=== PATIENT | female | born 1935 | race Caucasian/White ===

== ENCOUNTER → 2017-02-10 | Outpatient (CLI) | payer MEDICARE | LOC: WI 09:40 | PROVIDERS: ATTEND Internal Medicine | DX: M81.0 Age-related osteoporosis without current pathological fracture (principal) | CPT/HCPCS: 77080 ==

== ENCOUNTER 2017-11-05 13:42 | Emergency (ER) | payer MEDICARE ==
--- NOTE | 2017-11-05 14:01 | RADIOLOGY REPORT (SQ) ---
EXAM DESCRIPTION: CT HEAD WITHOUT COMPLETED DATE/TIME: 11/05/2017 1:51 pm REASON FOR STUDY: bed 11 stroke alert COMPARISON: 12/12/2014. TECHNIQUE: Axial images acquired through the brain without intravenous contrast. Images reviewed wi th bone, brain and subdural windows. Images stored on PACS. All CT scanners at this facility use dose modulation, iterative reconstruction, and/or weight based d osing when appropriate to reduce radiation dose to as low as reasonably achievable (ALARA). [facility]: Dose Right [facility]: CareDose [facility]: Dose Right [facility]: Teradose 4D [facility]: NormOxys RADIATION DOSE: mGy. LIMITATIONS: None. FINDINGS: VENTRICLES: Prominent. CEREBRUM: No masses. No hemorrhage. No midline shift. Areas of low density in the white matter mos t likely due to chronic micro-vascular ischemic change. No evidence for acute infarction. CEREBELLUM: No masses. No hemorrhage. No alteration of density. No evidence for acute infarction. EXTRAAXIAL SPACES: Mild age-related involutional change. No fluid collections. No masses. ORBITS AND GLOBE: No intra- or extraconal masses. Normal contour of globe without masses. CALVARIUM: No fracture. Previous right craniotomy. PARANASAL SINUSES: No fluid or mucosal thickening. SOFT TISSUES: No mass or hematoma. OTHER: No other significant finding. IMPRESSION: STABLE APPEARANCE. MILD CHRONIC CHANGES OF ATROPHY AND MICROVASCULAR ISCHEMIA. NO ACUT E PROCESS. EVIDENCE OF ACUTE STROKE: NO. COMMENT: Pertinent positive or negative findings of the imaging study reported as a CRITICAL EXAM t o ER STAFF at13:55 on 11/05/2017. Category of Critical Exam: Stroke protocol. TECHNICAL DOCUMENTATION: JOB ID: [id number] Quality ID # [id number]: Final reports with documentation of one or more dose reduction techniques (e.g., Au tomated exposure control, adjustment of the mA and/or kV according to patient size, use of iterative reconstruction technique) 2010 [employer]- All Rights Reserved
[2017-11-05 14:05] LABS: ABSOLUTE BASOPHILS # (AUTO) 0.1 10^3/uL (0.0-0.2); ABSOLUTE EOSINOPHILS # (AUTO) 0.2 10^3/uL (0.0-0.6); ABSOLUTE LYMPHOCYTES (AUTO) 2.6 10^3/uL (0.5-4.7); ABSOLUTE MONOCYTES (AUTO) 0.7 10^3/uL (0.1-1.4); ABSOLUTE NEUT (AUTO) 4.3 10^3/uL (1.7-8.2); BASOPHILS % (AUTO) 0.7 % (0-2); EOSINOPHILS % (AUTO) 2.5 % (0-6); HEMATOCRIT 42.4 % (36.0-47.0); HEMOGLOBIN 14.6 g/dL (12.0-15.5); HGB HCT DIFFERENCE 1.4; LYMPHOCYTES % (AUTO) 32.7 % (13-45); MEAN CORPUSCULAR HEMOGLOBIN 32.7 pg (27.0-33.4); MEAN CORPUSCULAR HGB CONC 34.5 g/dL (32.0-36.0); MEAN CORPUSCULAR VOLUME 95 fl (80-97); MONOCYTES % (AUTO) 8.9 % (3-13); RED BLOOD COUNT 4.47 10^6/uL (3.72-5.28); SEGMENTED NEUTROPHILS % (AUTO) 55.2 % (42-78); WHITE BLOOD COUNT 7.8 10^3/uL (4.0-10.5)
[2017-11-05 14:09] LABS: PROTHROMBIN TIME 12.9 SEC (11.4-15.4)
[2017-11-05 14:10] LABS: PARTIAL THROMBOPLASTIN TIME 32.3 SEC (23.5-35.8)
[2017-11-05] MEDS ORDERED: ALTEPLASE INJ 100 MG VIAL IV ONE (14:28)
--- NOTE | 2017-11-05 14:32 | RADIOLOGY REPORT (SQ) ---
EXAM DESCRIPTION: CHEST SINGLE VIEW COMPLETED DATE/TIME: 11/05/2017 1:53 pm REASON FOR STUDY: bed 11 stroke alert COMPARISON: 07/21/2016 EXAM PARAMETERS: NUMBER OF VIEWS: One view. TECHNIQUE: Single frontal radiographic view of the chest acquired. RADIATION DOSE: NA LIMITATIONS: None. FINDINGS: LUNGS AND PLEURA: Chronic interstitial changes are present there is no infiltrate or effus ion. There is no mass. MEDIASTINUM AND HILAR STRUCTURES: No masses. Contour normal. HEART AND VASCULAR STRUCTURES: Heart normal in size. Normal vasculature. BONES: No acute findings. HARDWARE: None in the chest. OTHER: No other significant finding. IMPRESSION: Chronic lung changes with no acute cardiopulmonary disease. TECHNICAL DOCUMENTATION: JOB ID: [id number] [employer]- All Rights Reserved
--- NOTE | 2017-11-05 14:45 | ER Document Report ---
ED General - General Stated Complaint: WEAKNESS Time Seen by Provider: 11/05/17 14:13 Mode of Arrival: Medic Information source: Relative, Emergency Med Personnel Notes: This is an 82-year-old female that is brought in by EMS with acute strokelike symptoms. Patient has a history of atrial fibrillation (no anticoagulation), hypertension, CHF, macular degeneration and glaucoma. The patient does have a history of intracranial bleeding in the past secondary to trauma (a fall in 2013 ). Patient was on anticoagulation at that time and required a craniotomy after the bleeding progressed and the patient developed left-sided symptoms (it was a right-sided bleed). As per the daughter who is power of commercial attorney and a nurse, the patient's deficits from that 2014 bleed completely resolved after surgery. The patient's baseline is that she is very functional, conversant and she lives with her . The patient was reportedly at the computer paying bills today , when she complained of headache and then slumped over. EMS arrived and found the patient to have left-sided weakness. The symptoms began acutely at 1:30 PM. TRAVEL OUTSIDE OF THE [place] IN LAST 30 DAYS: No - HPI Onset: Just prior to arrival Onset/Duration: Sudden Quality of pain: Dull Severity: Mild - Mild headache Pain Level: 1 Associated symptoms: denies: Chest pain, Fever, Shortness of breath Exacerbated by: Denies Relieved by: Denies Similar symptoms previously: No Recently seen / treated by doctor: No - Related Data Allergies/Adverse Reactions: celecoxib [From Celebrex] Allergy (Verified 11/05/17 18:34) codeine [Codeine] Allergy (Verified 11/05/17 18:34) levofloxacin [From Levaquin] Allergy (Verified 11/05/17 18:34) nitrofurantoin [From Macrobid] Allergy (Verified 11/05/17 18:34) nitrofurantoin macrocrystalline [From Macrobid] Allergy (Verified 11/05/17 18:34 ) promethazine HCl [From Phenergan] Allergy (Verified 11/05/17 18:34) Past Medical History - General Information source: Relative, Legal Guardian, Transfer Record - Social History Smoking Status: Never Smoker Cigarette use (# per day): No Chew tobacco use (# tins/day): No Frequency of alcohol use: None Drug Abuse: None Lives with: Spouse/Significant other - She lives with her Family History: None Patient has suicidal ideation: No Patient has homicidal ideation: No - Past Medical History Cardiac Medical History: Reports: Hx Atrial Fibrillation, Hx Congestive Heart Failure, Hx Coronary Artery Disease - cath 2008, Hx Hypercholesterolemia, Hx Hypertension Denies: Hx Heart Attack Pulmonary Medical History: Reports: Hx Bronchitis - 1976 collapsed lung Denies: Hx Asthma, Hx COPD, Hx Pneumonia, Hx Tuberculosis Neurological Medical History: Reports: Hx Cerebrovascular Accident - 07/2014 ; craniotomy for clots, Hx Seizures - post stroke 2013no meds now Endocrine Medical History: Reports: Hx Hyperthyroidism, Hx Hypothyroidism GI Medical History: Reports: Hx Diverticulitis, Hx Gastroesophageal Reflux Disease Musculoskeltal Medical History: Reports Hx Arthritis, Reports Hx Musculoskeletal Deformity, Reports Hx Musculoskeletal Trauma Skin Medical History: Denies Hx MRSA Psychiatric Medical History: Reports: Hx Anxiety Denies: Hx Depression Traumatic Medical History: Reports: Hx Fractures - T12 COMP FX, RIGHT HIP FX Past Surgical History: Reports: Hx Abdominal Surgery - SBO, Hx Appendectomy, Hx Cardiac Catheterization, Hx Cholecystectomy, Hx Orthopedic Surgery - hip replacement, hip repair, chest tube for colapsed lung, Hx Thyroid Surgery - THYROIDECTOMY - Immunizations Immunizations up to date: Yes Hx Diphtheria, Pertussis, Tetanus Vaccination: Yes Hx Pneumococcal Vaccination: 08/30/09 Review of Systems - Review of Systems Constitutional: denies: Chills, Fever EENT: No symptoms reported Cardiovascular: No symptoms reported Respiratory: No symptoms reported Gastrointestinal: No symptoms reported Genitourinary: No symptoms reported Female Genitourinary: No symptoms reported Musculoskeletal: No symptoms reported Skin: No symptoms reported Hematologic/Lymphatic: No symptoms reported Neurological/Psychological: See HPI Physical Exam - Vital signs Vitals: Pulse Resp BP Pulse Ox 104 H 18 144/99 H 96 11/05/17 13:44 11/05/17 13:44 11/05/17 13:44 11/05/17 13:44 Notes: The patient is alert, she is answering questions, her blood pressure is 146/98, pulse is 89, respiratory rate is 14 and the O2 saturation is 94% on room air. HEAD: Atraumatic, normocephalic. EYES: The patient has chronic eye disease (right greater than left), patient has a right gaze preference. ENT: Nares patent, oropharynx clear without exudates. Moist mucous membranes. NECK: Normal range of motion, supple without obvious mass LUNGS: Breath sounds clear to auscultation bilaterally and equal. No wheezes rales or rhonchi. HEART: Irregular. ABDOMEN: Soft, normoactive bowel sounds. No tenderness to palpation. No guarding, no rebound. No masses appreciated. EXTREMITIES: No pitting or edema. No clubbing or cyanosis. 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 Her NIH score is at least 21 PSYCH: Normal mood, normal affect. SKIN: Hematomas to the right upper extremity secondary to IV attempts Course - Re-evaluation Re-evalutation: Patient met in CT scan to begin NIH evaluation. Timeline discussed with EMS 11/05/17 14:45 I discussed the case including the past history with Dr. NICKERSON of neurology at [facility]. He has recommended TPA. I have discussed this with the patient's daughter who is power of commercial attorney and a nurse. I have explained the risks of intracranial bleed with her and the recommendations of Dr. Campbell. They are willing to go ahead with TPA. 11/05/17 14:56 Note: Patient is noted to have a fair amount of bleeding from all the IV sites. The daughter has expressed concerns regarding the bleeding in the thrombolytics. Transport helicopters here and can be at [facility] and 20 minutes: We will hold off on the TPA. 11/05/17 15:06 I have spoken to Hannah at the transfer center at [facility] and they will page Dr. NICKERSON so that I can update him. 11/05/17 15:[address] Campbell for update. Patient is currently in transport now. 11/05/17 15:07 11/05/17 16:41 11/14/17 10:49 Note: To summarize timeline of events: The patient was brought by EMS immediately to the CT scanner. The patient was seen by me while she was in the CT scanner (at 13:44). The patient was accepted for transfer by Dr. Nickerson during my initial conversation with Evan Matos (approximately 14:05). While the initial plan was to give TPA, a significant concern arose regarding her risk of bleeding given abnormal bleeding from all IV sites. The patient's daughter was at the bedside and included on the decision not to give TPA. Dr. NICKERSON was notified of the plan to withhold TPA until his evaluation at [facility]. This was discussed with the transport flight crew at the bedside at 14:50. The patient was taken out of the department by the transport crew at approximately 1500. - Vital Signs Vital signs: Temp Pulse Resp BP Pulse Ox 99.8 F 110 H 20 122/55 L 97 11/05/17 17:55 11/05/17 17:55 11/05/17 17:55 11/05/17 17:55 11/05/17 17:55 - Laboratory Result Diagrams: 11/05/17 13:52 11/05/17 14:55 Laboratory results interpreted by me: 11/05/17 11/05/17 13:46 14:55 Sodium 134.2 L Chloride 95 L BUN 23 H Est GFR (Non-Af Amer) 54 L POC Glucose 113 H Calcium 10.4 H Direct Bilirubin 0.5 H Total Protein 8.5 H - Diagnostic Test Radiology reviewed: Image reviewed, Reports reviewed - CT of the head shows no acute stroke or bleed. Chest x-ray shows no acute infiltrates. - EKG Interpretation by Me Rhythm: A.Fib - EKG shows atrial fibrillation with a ventricular rate of 84, no acute ST-T wave changes Critical Care Note - Critical Care Note Total time excluding time spent on procedures (mins): 50 Discharge - Discharge Clinical Impression: Acute stroke Condition: Critical Disposition: [facility]
[2017-11-05 15:31] LABS: ALANINE AMINOTRANSFERASE 32 U/L (9-52); ALBUMIN 4.6 g/dL (3.5-5.0); ALKALINE PHOSPHATASE 98 U/L (38-126); ANION GAP 17 (5-19); ASPARTATE AMINO TRANSFERASE 31 U/L (14-36); BILIRUBIN,DIRECT 0.5 mg/dL (0.0-0.4); BILIRUBIN,TOTAL 0.7 mg/dL (0.2-1.3); BLOOD UREA NITROGEN 23 mg/dL (7-20); CALCIUM 10.4 mg/dL (8.4-10.2); CARBON DIOXIDE 22 mmol/L (22-30); CHLORIDE 95 mmol/L (98-107); CREATINE KINASE 67 U/L (30-135); CREATININE RESULT 0.98 mg/dL (0.52-1.25); GLUCOSE 108 mg/dL (75-110); POTASSIUM 4.2 mmol/L (3.6-5.0); SODIUM 134.2 mmol/L (137-145); TOTAL PROTEIN 8.5 g/dL (6.3-8.2)
[2017-11-05 15:42] LABS: CREATINE KINASE MB 1.62 ng/mL (<4.55)
[2017-11-05 15:46] LABS: TROPONIN I 0.051 ng/mL
[2017-11-05 19:12] VITALS: BP 144/99
--- NOTE | 2017-11-05 20:44 | EKG REPORT ---
SEVERITY:- ABNORMAL ECG - ATRIAL FIBRILLATION LEFT AXIS DEVIATION LVH WITH SECONDARY REPOLARIZATION ABNORMALITY VS ISCHEMIA ANTERIOR Q WAVES, POSSIBLY DUE TO LVH : Confirmed by: eJnnifer Claros 05-Nov-2017 20:44:47
== END 2017-11-05 15:00 | disposition short-term general hospital (02) ==
LOC: ER 13:42
DX: I63.9 Cerebral infarction, unspecified (principal); G81.94 Hemiplegia, unspecified affecting left nondominant side; R47.01 Aphasia; I10 Essential (primary) hypertension; I48.91 Unspecified atrial fibrillation
CPT/HCPCS: 36415; 70450; 71010; 80053; 82550; 82553; 82962; 84484; 85025; 85610; 85730; 93005; 93010; 99291